=== PATIENT | female | born 1960 | race American Indian/Alaskan Native ===

== ENCOUNTER 2018-02-17 15:47 | Emergency (ER) | payer BC ==
[2018-02-17 16:14] VITALS: BP 147/84
--- NOTE | 2018-02-17 18:01 | Emergency Department Report ---
Minor Respiratory - HPI Chief Complaint: Upper Respiratory Infection Stated Complaint: BACK PAIN Time Seen by Provider: 02/17/18 17:44 Duration: 1 week Severity: mild Minor Respiratory: Yes Rhinorrhea, Yes Sore Throat, Yes Able to Tolerate Fluids , Yes Cough (dry), No Ear Pain, No Chest Pain, No Shortness of Breath, No Fever Other History: Patient was here one week ago for sinus pain with cough. Patient started on amoxicillin and Flonase. Patient states she still has some burning sensations in the face however the cough is improved. Patient states that she doesn't feel as tender in the face and as she did last week but she doesn't feel as though her symptoms are gone. ED Review of Systems ROS: Stated complaint: BACK PAIN Other details as noted in HPI Comment: All other systems reviewed and negative ED Past Medical Hx - Past Medical History Hx Hypertension: Yes - Surgical History Hx Cholecystectomy: Yes Additional Surgical History: Bladder tact with sling, A&P repair, Hemorrhoidectomy, Novasure - Social History Smoking Status: Never Smoker - Medications Home Medications: Home Medications Medication Instructions Recorded Confirmed Last Taken Type Amoxicillin/Potassium Clav 1 each PO BID #14 tablet 02/10/18 Unknown Rx [Augmentin 875-125 Tablet] Fluticasone [Flonase] 1 spray NS QDAY #1 bottle 02/10/18 Unknown Rx HYDROcodone/APAP 5-325 [[place] 1 each PO Q4HR PRN #12 tablet 02/10/18 Unknown Rx 5/325] Ondansetron [Zofran Odt] 4 mg PO Q8HR PRN #10 tab.rapdis 02/10/18 Unknown Rx Prednisone [predniSONE 10 mg 10 mg PO .TAPER #1 tab.ds.pk 02/17/18 Unknown Rx (6-Day Pack, 21 Tabs)] Minor Respiratory Exam - Exam General: Vital signs noted. No distress. Alert and acting appropriately. HEENT: Yes Moist Mucous Membranes, No Pharyngeal Erythema, No Pharyngeal Exudates, No Rhinorrhea, No Conjuctival Injection, No Frontal Tenderness, No Maxillary Tenderness Ear: Neither TM Bulge, Neither TM Erythema, Neither EAC Pain, Neither EAC Discharge Neck: Yes Supple, No Adenopathy Lungs: Yes Good Air Exchange, No Wheezes, No [place], No Stridor, No Cough, No Labored Respirations, No Retractions, No Use of Accessory Muscles, No Other Abnormal Lung Sounds Heart: Yes Regular, No Murmur Abdomen: Yes Normal Bowel Sounds, No Tenderness, No Peritoneal Signs Skin: No Rash, No Edema Neurologic: Alert and oriented, no deficits. Musculoskeletal: Unremarkable. ED Course Vital Signs 02/17/18 16:10 Temperature 98.2 F Pulse Rate 98 H Respiratory 16 Rate Blood Pressure 147/84 O2 Sat by Pulse 100 Oximetry ED Medical Decision Making - Medical Decision Making Patient be started on Medrol Dosepak will continue with the Flonase. Critical care attestation.: If time is entered above; I have spent that time in minutes in the direct care of this critically ill patient, excluding procedure time. ED Disposition Clinical Impression: Upper respiratory infection Disposition: DC-01 TO HOME OR SELFCARE Is pt being admited?: No Does the pt Need Aspirin: No Condition: Stable Instructions: Upper Respiratory Infection (ED) Prescriptions: Prednisone [predniSONE 10 mg (6-Day Pack, 21 Tabs)] 10 mg PO .TAPER #1 tab.ds.pk Referrals: PRIMARY CARE, [Primary Care Provider] - 3-5 Days
== END 2018-02-17 18:06 | disposition home or self-care (01) ==
LOC: ED 15:47
DX: J06.9 Acute upper respiratory infection, unspecified (principal); I10 Essential (primary) hypertension; Z90.49 Acquired absence of other specified parts of digestive tract
CPT/HCPCS: 99282